=== PATIENT | male | born 1990 | race Caucasian/White ===

== ENCOUNTER 2019-07-17 17:20 | Emergency (ER) | payer MEDICAID ==
[~2019-07-17] VITALS: Ht 180.3 cm; Wt 94.8 kg
[2019-07-17 17:47] VITALS: Ht 180.3 cm; Wt 94.8 kg
[2019-07-17 19:01] VITALS: BP 132/86
== END 2019-07-17 19:01 | disposition home or self-care (01) ==
LOC: ED 17:20
DX: S62.627A Displaced fracture of middle phalanx of left little finger, initial encounter for closed fracture (principal); S63.257A Unspecified dislocation of left little finger, initial encounter; W23.0XXA Caught, crushed, jammed, or pinched between moving objects, initial encounter; Y93.89 Activity, other specified; Y92.89 Other specified places as the place of occurrence of the external cause; Y99.8 Other external cause status
CPT/HCPCS: A4570